=== PATIENT | male | born 1945 | race Caucasian/White ===

== ENCOUNTER 2017-04-18 06:20 | Day surgery (SDC) | payer OTHER ==
[2017-04-12 13:13] LABS: BASOPHILS 0.7 %; BASOPHILS ABSOLUTE 0.04 10/3/uL (0.0-0.16); EOSINOPHILS 5.5 %; HEMATOCRIT 45.1 % (40.0-51.0); HEMOGLOBIN 14.9 g/dL (13.6-17.8); IMMATURE GRANULOCYTES 0.2 %; IMMATURE GRANULOCYTES ABSOLUTE 0.01 10/3/uL (0.0-0.11); LYMPHOCYTES 29.3 %; LYMPHOCYTES ABSOLUTE 1.61 10/3/uL (0.67-4.30); MEAN CORPUSCULAR HEMOGLOB 30.5 pg (26.0-34.0); MEAN CORPUSCULAR VOLUME 92.2 fL (80-100); MEAN PLATELET VOLUME 9.6 fL (9.2-13.0); MONOCYTES 7.6 %; MONOCYTES ABSOLUTE 0.42 10/3/uL (0.21-1.20); NEUTROPHILS 56.7 %; NEUTROPHILS ABSOLUTE 3.12 10/3/uL (2.02-8.40); PLATELET COUNT 189 10/3/uL (150-400); RBC DISTRIBUTION WIDTH 12.7 % (12.0-16.0); RED CELL COUNT 4.89 10/6/uL (4.7-6.1); WHITE BLOOD CELLS 5.5 10/3/uL (4.5-10.5)
[2017-04-12 13:17] LABS: MANUAL DIFF NO %
[2017-04-12 13:28] LABS: BUN (BLOOD UREA NITROGEN) 17 MG/DL (6-23); CALCIUM, SERUM 9.1 MG/DL (8.5-10.4); CHLORIDE, SERUM 109 MMOL/L (96-112); CO2 (CARBON DIOXIDE) 29 MMOL/L (24-34); CREATININE 1.22 MG/DL (0.70-1.30); GFR AFRICAN AMERICAN 68 ML/MIN (>=60); GFR NON AFRICAN AMERICAN 58 ML/MIN (>=60); GLUCOSE, SERUM 110 MG/DL (60-99); POTASSIUM, SERUM 4.4 MMOL/L (3.5-5.3); SODIUM, SERUM 143 MMOL/L (135-148)
--- NOTE | ~2017-04-18 | OP ---
Record Of Operation [facility] [address] [place]. [address] NAME: AUGUSTO WAITE : 41 STATUS : [facility]#: [id number] AGE: 71 ADM/REG DATE : 04/18/17 MR#: [id number] REPORT SERV DATE: 04/18/17 DICTATED BY: NICOLE STAFFORD DATE: 04/18/17 REPORT STATUS : Draft TRANSCRIBED BY: OCTAVIO DATE: 04/18/17 DATE OF PROCEDURE: 04/18/2017 SERVICE: Otolaryngology. 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 POSTOPERATIVE DIAGNOSIS: Left true vocal cord paralysis. PROCEDURE: Microsuspension laryngoscopy with left true vocal cord medialization. ANESTHESIA: General endotracheal anesthesia. COMPLICATIONS: None. SPECIMENS: None. FINDINGS: The patient did not have signs of a chronically paralyzed vocal cord. I got excellent medialization anteriorly and in the middle of the cord using Prolaryn and temporary voice gel. STATEMENT OF MEDICAL NECESSITY: This is a 71-year-old, referred to me for several-month history of voice change and swallowing difficulty. He was found on exam to have a paralyzed true vocal cord. Full workup was performed including CT chest, neck, and head. No tumor was identified. I recommended this procedure as a way to palliate his symptoms. STATEMENT OF OPERATION: The patient brought to the operating room in supine position, transferred over to the operating table. All pressure points were padded. General endotracheal anesthesia was established with a 6.5 endotracheal tube. The patient's lips were moistened with bacitracin ointment. A tooth guard was placed in the upper teeth. A Dedo laryngoscope was used to get full evaluation of the larynx and the patient was suspended. Once under suspension, a 5 mm 0 degree camera was used to evaluate the true vocal cords. Pre and post injection photographs were taken. I injected 0.6 mL into the left true vocal fold or just lateral to the true vocal fold using Prolaryn voice gel. Once the injection was completed, the Dedo and mouth guard were removed. The patient was turned back over to Anesthesia, where he awoke, was extubated, and transferred to the PACU in stable condition. PS/OCTAVIO Nicole Stafford MD / [id number] Record Of Operation [place] [address] [place]. [address] NAME: AUGUSTO WAITE : 41 STATUS : [facility] PAT#: [id number] AGE: 71 ADM/REG DATE : 04/18/17 MR#: [id number] REPORT SERV DATE: 04/18/17 DICTATED BY: NICOLE STAFFORD DATE: 04/18/17 REPORT STATUS : Draft TRANSCRIBED BY: OCTAVIO DATE: 04/18/17 CC: MD MAXIMO Fregoso STEPHEN S
[~2017-04-18 06:20] MED LIST: ASAB PO; PRILO PO; QVAR80 MCG INH
== END 2017-04-18 09:49 | disposition home or self-care (01) ==
LOC: SDC 06:20
PROVIDERS: Otolaryngology
PROC: 3E0F8GC Introduction of Other Therapeutic Substance into Respiratory Tract, Via Natural or Artificial Opening Endoscopic (ICD-10-PCS; 2017-04-18)
PROC: 3E0F8GC Introduction of Other Therapeutic Substance into Respiratory Tract, Via Natural or Artificial Opening Endoscopic (ICD-10-PCS; 2017-04-18)
PROC: 3E0F8GC Introduction of Other Therapeutic Substance into Respiratory Tract, Via Natural or Artificial Opening Endoscopic (ICD-10-PCS; principal; 2017-04-18 07:15)
DX: J38.01 Paralysis of vocal cords and larynx, unilateral (principal); J45.909 Unspecified asthma, uncomplicated; K21.9 Gastro-esophageal reflux disease without esophagitis; Z79.82 Long term (current) use of aspirin; Z79.899 Other long term (current) drug therapy; Z98.890 Other specified postprocedural states; Z86.73 Personal history of transient ischemic attack (TIA), and cerebral infarction without residual deficits
CPT/HCPCS: 80048; 85025; 93005; A9270-GY; C1878; J2250; J2405; J2710; J3010